=== PATIENT | female | born 1950 | race Caucasian/White ===

== ENCOUNTER → 2023-05-24 09:30 | Outpatient (REF) | payer MEDICARE, SELFPAY ==
[2023-05-24 10:10] LABS: % Basophils 1.2 % (0-2); % Immature Granulocytes 0.3 % (0-0.5); % Lymphocytes 34.4 % (20.5-51.1); % Monocytes 6.9 % (1.7-9.3); % Neutrophils 54.2 % (42.2-75.2); Absolute Basophils 0.1 10^3/uL (0-0.2); Absolute Eosinophils 0.2 10^3/uL (0-0.7); Absolute Lymphocytes 2.1 10^3/uL (1.2-3.4); Absolute Monocytes 0.4 10^3/uL (0.1-0.6); Absolute Neutrophils 3.2 10^3/uL (1.4-6.5); Hematocrit 37.9 % (37.0-47.0); Hemoglobin 12.8 g/dL (12.0-16.0); Mean Corp Hgb Conc. 33.8 g/dL (33.0-37.0); Mean Corpuscular Hgb 30.5 pg (27.0-31.0); Mean Corpuscular Volume 90.2 fL (81.0-99.0); Mean Platelet Volume 9.7 fL (7.4-10.4); Nucleated Red Blood Cells % 0 %; Platelet Count 329 10^3/uL (130-400); Red Cell Dist. Width 13.4 % (11.5-14.5)
[2023-05-24 10:31] LABS: ALT (SGPT) 15 U/L (0-35); AST (SGOT) 19 U/L (14-36); Albumin 3.9 g/dl (3.5-5.0); Alkaline Phosphatase 84 U/L (38-126); Blood Urea Nitrogen 12 mg/dl (7-17); Carbon Dioxide 25 mmol/L (22-30); Chloride 105 mmol/L (98-107); Glucose 86 mg/dl (70-99); HDL Cholesterol 78 mg/dl; LDL Cholesterol, Calculated 72 mg/dl; Potassium 4.5 mmol/L (3.5-5.1); Sodium 139 mmol/L (135-145); Total Bilirubin 0.7 mg/dl (0.2-1.3); Total Cholesterol 178 mg/dl (50-199); Total Protein 6.8 g/dl (6.3-8.2); Triglyceride 144 mg/dl (10-149); Very Low Density Lipoprotein 28 mg/dl (0-30); eGFR > 60.00
[2023-05-24 11:01] LABS: TSH 2.13 uIU/ml (0.47-4.68)
== END ==
LOC: REG 09:30
PROVIDERS: ATTENDING PHYSICIAN Family Medicine
DX: C50.919 Malignant neoplasm of unspecified site of unspecified female breast (principal); C43.9 Malignant melanoma of skin, unspecified; E78.2 Mixed hyperlipidemia
CPT/HCPCS: 36415; 80053; 80061; 84443; 85025

== ENCOUNTER → 2023-06-20 10:15 | Outpatient (REF) | payer MEDICARE, SELFPAY | LOC: DHCBC HW 10:15 | PROVIDERS: ATTENDING PHYSICIAN Internal Medicine Cardiovascular Disease; FAMILY PHYSICIAN Family Medicine | DX: R06.02 Shortness of breath (principal); I44.4 Left anterior fascicular block; E78.00 Pure hypercholesterolemia, unspecified | CPT/HCPCS: 93306 ==

== ENCOUNTER → 2023-06-23 08:59 | Outpatient (REF) | payer MEDICARE, SELFPAY | LOC: RCS 08:59 | PROVIDERS: ATTENDING PHYSICIAN Internal Medicine Cardiovascular Disease; FAMILY PHYSICIAN Family Medicine | DX: R06.02 Shortness of breath (principal); I44.4 Left anterior fascicular block; E78.00 Pure hypercholesterolemia, unspecified | CPT/HCPCS: 93017 ==

== ENCOUNTER → 2023-07-16 11:36 | Outpatient (REF) | payer MEDICARE, SELFPAY | LOC: DHCBC/DCA 11:36 | PROVIDERS: ATTENDING PHYSICIAN Internal Medicine Cardiovascular Disease; FAMILY PHYSICIAN Family Medicine | DX: R94.39 Abnormal result of other cardiovascular function study (principal); E78.00 Pure hypercholesterolemia, unspecified; R06.02 Shortness of breath; I44.4 Left anterior fascicular block | CPT/HCPCS: 78452; 93017; A9500 ==

== ENCOUNTER → 2023-07-25 10:28 | Outpatient (REF) | payer MEDICARE, SELFPAY ==
[2023-07-25 10:59] LABS: Ionized Calcium 1.23 mMOL/L (1.15-1.33)
[2023-07-25 11:38] LABS: Blood Urea Nitrogen 14 mg/dl (7-17); Calcium 10.3 mg/dl (8.4-10.2); Carbon Dioxide 28 mmol/L (22-30); Chloride 106 mmol/L (98-107); Glucose 91 mg/dl (70-99); Potassium 5.1 mmol/L (3.5-5.1); Sodium 140 mmol/L (135-145); eGFR 59.49
[2023-07-25 11:57] LABS: Vitamin D, 25-OH*** 20.3 ng/mL (30-80)
[2023-07-26 11:05] LABS: Intact PTH 45.9 pg/ml (13.6-85.8)
== END ==
LOC: REG 10:28
PROVIDERS: ATTENDING PHYSICIAN Internal Medicine Endocrinology, Diabetes & Metabolism; FAMILY PHYSICIAN Family Medicine
DX: M81.0 Age-related osteoporosis without current pathological fracture (principal); E55.9 Vitamin D deficiency, unspecified
CPT/HCPCS: 36415; 80048; 82306; 82330; 83970

== ENCOUNTER 2023-12-14 19:25 | Emergency (ER) | payer MEDICARE, OTHER, SELFPAY ==
[2023-12-14 19:35] VITALS: BP 172/81
[2023-12-14 19:47] LABS: % Basophils 0.5 % (0-2); % Eosinophils 1.5 % (0-6); % Immature Granulocytes 0.1 % (0-0.5); % Lymphocytes 38.1 % (20.5-51.1); % Monocytes 7.6 % (1.7-9.3); % Neutrophils 52.2 % (42.2-75.2); Absolute Eosinophils 0.1 10^3/uL (0-0.7); Absolute Lymphocytes 2.9 10^3/uL (1.2-3.4); Absolute Monocytes 0.6 10^3/uL (0.1-0.6); Absolute Neutrophils 3.9 10^3/uL (1.4-6.5); Hematocrit 40.4 % (37.0-47.0); Hemoglobin 13.5 g/dL (12.0-16.0); Mean Corp Hgb Conc. 33.4 g/dL (33.0-37.0); Mean Corpuscular Hgb 29.5 pg (27.0-31.0); Mean Corpuscular Volume 88.4 fL (81.0-99.0); Mean Platelet Volume 9.4 fL (7.4-10.4); Nucleated Red Blood Cells % 0 %; Platelet Count 339 10^3/uL (130-400); Red Blood Cell Count 4.57 10^6/uL (4.20-5.40); Red Cell Dist. Width 13.5 % (11.5-14.5); White Blood Cell Count 7.5 10^3/uL (4.8-10.8)
[2023-12-14 19:57] LABS: INR 0.99; PT 12.9 Sec (11.4-14.6)
[2023-12-14 20:08] LABS: ALT (SGPT) 15 U/L (0-35); AST (SGOT) 21 U/L (14-36); Albumin 4.3 g/dl (3.5-5.0); Alkaline Phosphatase 77 U/L (38-126); Blood Urea Nitrogen 18 mg/dl (7-17); Carbon Dioxide 26 mmol/L (22-30); Chloride 102 mmol/L (98-107); Glucose 107 mg/dl (70-99); Potassium 4.3 mmol/L (3.5-5.1); Sodium 140 mmol/L (135-145); Total Bilirubin 0.4 mg/dl (0.2-1.3); Total Protein 7.1 g/dl (6.3-8.2); eGFR 59.49
[2023-12-14 20:10] LABS: Troponin I < 0.012 ng/ml
[2023-12-14 21:37] VITALS: BP 156/74; BMI 25.8
--- NOTE | 2023-12-14 22:56 | ED.GENMED ---
History of Present Illness
General
Chief Complaint: Chest Pain
Time Seen by Provider: 12/14/23 21:54
History of Present Illness
History of Present Illness:
Patient is a 73-year-old woman with history of r hyperlipidemia, eflux, anemia, prior breast cancer presenting to the emergency department with chest pain. Patient states that she been having exertional chest pain for a few months now. For the
past 4 days she has had constant left-sided chest pain. It did go down her arm. She currently states that the pain is resolved. She states that the pain is intermittent and is unclear of the cause of the trigger. She did not take any
medications. Per chart review patient did have an exercise stress test done earlier this year that was positive for ischemia. She states that is being followed by her electric motor fitter Dr. Barriga. She is not on aspirin. She also states that she
did have left-sided arm pain a few months ago that was musculoskeletal. She does note she has been cooking a lot and she is left-handed. Denies any shortness of breath. No leg swelling hemoptysis or long car rides or plane rides. No nausea
vomiting. No diaphoresis. She does have family history of coronary artery disease with her father passing away when he was 60.
Past History
Past History
ED Past Medical History: Cancer (Breast CA), GERD, Hypercholesterolemia, Psychiatric (Anxiety) and Other (Pernicious anemia, )
ED Past Surgical History: Gynecological (Hysterectomy, Bilateral mastectomy)
Social History
Tobacco: Non-smoker
Alcohol: Occasional
Drug: None
Personal:
Living: with family
Employment: Retired
Family History
Family History: Other (Noncontributory)
Phy Exam
Physical Exam
Physical Exam:
GENERAL: in no acute distress
HEENT: normocephalic, extraocular movements intact, moist oral mucosa
NECK: normal inspection
RESPIRATORY: no respiratory distress, clear to auscultation bilaterally
CARDIOVASCULAR: regular rate and rhythm, 2+ radial pulses bilaterally
ABDOMEN/: soft, non-distended, non-tender to palpation, no rebound or guarding
EXTREMITIES: non-tender, no edema/swelling
NEUROLOGIC: awake and alert, moves all extremities
SKIN: warm
Scores
Heart Score for Chest Pain Patients
STEMI patient?: No
History: Slightly or Non-Suspicious
ECG: Nonspecific Repolarization
Age: >/= 65 years
Risk Factors: 1 or 2 Risk Factors
Troponin: </= Normal Limit
Heart Score for Chest Pain Patients: 4
Heart Score Risk: 20.3% MACE over next 6 weeks
Course
Orders/Labs/Results
Orders:
Orders
12/14/23 19:27
EKG [Electrocardiogram (*1)] Urgent
Reason for Study: Chest Pain
EKG- Treatment ONCE
12/14/23 19:41
Complete Blood Count/With Diff Urgent
Comprehensive Metabolic Panel Urgent
Prothrombin Time Urgent
Troponin I Urgent
12/14/23 21:38
Chest [CR Chest - 2 Views ] Urgent
Comment:
Reason For Exam: chest pain
12/14/23 23:44
Troponin I Urgent
Abnormal Lab Results
12/14/23
19:41
BUN 18 H mg/dl
(7-17)
Glucose 107 H mg/dl
(70-99)
12/14/23 19:41
12/14/23 19:41
Vital Signs
Initial and Last Documented VS:
Initial Vital Signs
Temp Pulse Resp BP Pulse Ox
98.1 F 66 18 172/81 100
12/14/23 19:35 12/14/23 19:35 12/14/23 19:35 12/14/23 19:35 12/14/23 19:35
Last Documented Vital Signs
Temp Pulse Resp BP Pulse Ox
98.1 F 58 17 153/79 98
12/14/23 19:35 12/14/23 21:45 12/14/23 21:45 12/14/23 23:05 12/14/23 23:05
MDM/Problems Addressed
Differential Diagnosis Includes:
Patient is a 73-year-old woman with history of hyperlipidemia presenting to the emergency department with chest pain that is currently resolved. She does have a positive stress test. She is currently pain-free. I am concerned about ACS versus
NSTEMI. EKG per my interpretation with slight lateral depression that is similar to prior. Initial troponin negative. Chest x-ray per my interpretation no focal opacity. I will discuss the case with on-call cardiology given that she does have a
high heart score. Given that patient objectively at this point does not have any abnormal findings patient could be discharged home. Dr. Mccracken did look at the stress testing and it was normal which is reassuring. I did go back into discussed
with patient and obtain additional history. Patient continues to state that it is intermittent with unclear triggers. However she notes that she has not been having any chest pain with exertion and it has more so been shortness of breath. She
states that she has never had chest pain with exertion. I did discuss the options of admitting for observation given her high heart score versus obtaining delta troponin given that the pain today was intermittent or discharging with cardiology
follow-up. After shared decision making we will obtain delta troponin given the unclear nature of the exact timing of today's intermittent episode. If normal will discharge home.
*Critical Care Note
Total Time (30-74mins, 75-104mins- exclusive of procedures): Not Applicable
ED Attending Note
-
Portions of this chart may have been created with voice recognition software.� Occasional wrong word or��sound alike� substitutions may have occurred due to the inherent limitations of voice recognition software.
Discharge Plan
Departure
Patient Disposition: Home (Routine Discharge)
Date of Disposition: 12/15/23
Time of Disposition: 00:26
Patient with high blood pressure during this ER visit?: Yes
Discharge Problem:
Chest pain
Instructions: Chest Pain CBC Follow Up
Prescriptions:
No Action
venlafaxine [Effexor] 75 mg Tablet
75 mg PO HS
atorvastatin 10 mg Tablet
10 mg PO DAILY
vitamin [id number] B1 100-1 mg/mL Solution
1 ml IM .BIWEEKLY
esomeprazole magnesium [Nexium] 40 mg Capsule,Delayed Release(Dr/Ec)
40 mg PO DAILY
Prolia 60 mg/mL Syringe
60 mg SC [id number]
Referrals:
Jamaal Iraheta MD [Family Provider] -
Activity Restrictions/Additional Instructions:
You were evaluated in the Emergency Department today for chest pain. Your evaluation has shown no signs of medical conditions requiring emergent intervention at this time, however we recommend that you follow up with your primary care physician or
your electric motor fitter as soon as possible for further testing as an outpatient.
Please schedule an appointment for follow up with your primary care physician as soon as possible.
Return to the Emergency Department if you experience worsening or uncontrolled chest pain, shortness of breath, light headedness, feeling faint, nausea, vomiting, or any other concerning symptoms.
Thank you for choosing us for your care.
Interventions
Interventions:
*Risk Screen - Suicide Last Done: 12/14/23 21:37
*Neglect/Abuse Screening Last Done: 12/14/23 21:37
ED- Fall Risk Assessment Last Done: 12/14/23 21:37
ED- Cardiac Assessment Last Done: 12/14/23 21:37
Discharge Date and Time
Print Language: MALAY
[2023-12-14 23:05] VITALS: BP 153/79
--- NOTE | 2023-12-14 23:38 | EDRN ---
Dr. Mccray in at bedside speaking with patient about plan.
--- NOTE | 2023-12-14 23:57 | EDRN ---
Patient aware we are re-checking the troponin blood level, provided patient and with apple juice, call lynne in reach, no further complaints.
[2023-12-15] VITALS: BP 144/67
[2023-12-15 00:16] LABS: Troponin I < 0.012 ng/ml
== END 2023-12-15 00:53 | disposition home or self-care (01) ==
LOC: EMR 19:25
PROVIDERS: Emergency Medicine; EMERGENCY PHYSICIAN Student in an Organized Health Care Education/Training Program; FAMILY PHYSICIAN Family Medicine
DX: R07.89 Other chest pain (principal); M79.602 Pain in left arm; R06.02 Shortness of breath; R03.0 Elevated blood-pressure reading, without diagnosis of hypertension; E78.00 Pure hypercholesterolemia, unspecified; K21.9 Gastro-esophageal reflux disease without esophagitis; D64.9 Anemia, unspecified; I99.8 Other disorder of circulatory system; Z88.5 Allergy status to narcotic agent
CPT/HCPCS: 99283; 71046; 80053; 84484; 85025; 85610; 93005

== ENCOUNTER 2024-01-02 08:10 | Day surgery (SDC) | payer MEDICARE, OTHER, SELFPAY ==
[2024-01-02] VITALS (12 sets, daily range): BP systolic 105–167; BP diastolic 67–84; BMI 27.1
[2024-01-02] MEDS: LOW STRENGTH ASPIRIN 81 MG PO (08:52)
[2024-01-02] MEDS: NSS 500 ML IV (08:52)
--- NOTE | 2024-01-02 10:40 | ITS.CL.CATH ---
[employer] - Catheterization
Cardiac Catheterization
Procedure Report:
CARDIAC CATHETERIZATION REPORT
Date of Procedure: 01/02/2024
Referring: Hussain Leyva MD
Indication: Abnormal stress test
�
HEMODYNAMIC DATA
AO: 141/73
LV: 141/14
�
LEFT VENTRICULOGRAPHY: Focal inferobasal hypokinesis with EF 58%
�
CORONARY ANGIOGRAPHY
Dominance: Right
Left Main: Normal
LAD: Mild calcification with trivial luminal disease in the LAD proper. The medium sized D2 has 40% ostial stenosis
Circumflex: Trivial luminal irregularities
RCA: Dominant vessel with occlusion in the mid RCA. A large PDA and large posterolateral system fill via well-developed collaterals from the left coronary artery
�
Closure Device: None-the procedure was performed via the right radial artery. The Huseyin's test was normal prior to the procedure.
�
Radiation (mGy): 187
DAP (cm2.Gy): 14.9
Fluoroscopy time: 1.9 minutes
�
CONCLUSIONS
1:�Focal area of inferobasal hypokinesis with EF 58%
2:�Single-vessel CAD with mid RCA chronic total occlusion. The large distal RCA territory is well collateralized
3. Medical therapy as needed for ischemic symptoms and aggressive risk factor modification-we will add aspirin 81 mg daily to her regimen and increase atorvastatin to 40 mg daily with goal LDL less than 70 and ideally less than 55
�
�
Copy to: Hussain Leyva MD, Jamaal Iraheta MD
�
Hussain Leyva MD, [facility], [facility]
== END 2024-01-02 14:20 | disposition home or self-care (01) ==
LOC: CATH 08:10
PROVIDERS: ATTENDING PHYSICIAN Internal Medicine Cardiovascular Disease; FAMILY PHYSICIAN Family Medicine; OTHER PHYSICIAN Internal Medicine Cardiovascular Disease
DX: I25.10 Atherosclerotic heart disease of native coronary artery without angina pectoris (principal); Z79.82 Long term (current) use of aspirin; I25.82 Chronic total occlusion of coronary artery; Z79.899 Other long term (current) drug therapy
CPT/HCPCS: 93458; C1894; Q9967

== ENCOUNTER → 2024-02-02 14:48 | Outpatient (REF) | payer MEDICARE, OTHER, SELFPAY ==
[2024-02-02 16:00] LABS: Ionized Calcium 1.25 mMOL/L (1.15-1.33)
[2024-02-02 16:18] LABS: Blood Urea Nitrogen 15 mg/dl (7-17); Carbon Dioxide 30 mmol/L (22-30); Chloride 102 mmol/L (98-107); Glucose 95 mg/dl (70-99); Potassium 4.5 mmol/L (3.5-5.1); Sodium 142 mmol/L (135-145); eGFR 53.06
[2024-02-02 16:37] LABS: Vitamin D, 25-OH*** 20.9 ng/mL (30-80)
[2024-02-04 11:27] LABS: Intact PTH 34.9 pg/ml (13.6-85.8)
== END ==
LOC: RAD 14:48
PROVIDERS: ATTENDING PHYSICIAN Internal Medicine Endocrinology, Diabetes & Metabolism; FAMILY PHYSICIAN Family Medicine
DX: M81.0 Age-related osteoporosis without current pathological fracture (principal); E55.9 Vitamin D deficiency, unspecified
CPT/HCPCS: 36415; 77080; 80048; 82306; 82330; 83970

== ENCOUNTER 2024-04-05 06:16 | Emergency (ER) | payer MEDICARE, OTHER, SELFPAY ==
[2024-04-05 06:19] VITALS: BP 148/86
[2024-04-05 06:50] LABS: % Basophils 0.5 % (0-2); % Eosinophils 3.1 % (0-6); % Immature Granulocytes 0.2 % (0-0.5); % Monocytes 6.5 % (1.7-9.3); % Neutrophils 61.7 % (42.2-75.2); Absolute Basophils 0.1 10^3/uL (0-0.2); Absolute Eosinophils 0.3 10^3/uL (0-0.7); Absolute Lymphocytes 2.6 10^3/uL (1.2-3.4); Absolute Monocytes 0.6 10^3/uL (0.1-0.6); Absolute Neutrophils 5.6 10^3/uL (1.4-6.5); Hematocrit 43.3 % (37.0-47.0); Hemoglobin 14.2 g/dL (12.0-16.0); Mean Corp Hgb Conc. 32.8 g/dL (33.0-37.0); Mean Corpuscular Hgb 30.5 pg (27.0-31.0); Mean Corpuscular Volume 93.1 fL (81.0-99.0); Mean Platelet Volume 10.2 fL (7.4-10.4); Nucleated Red Blood Cells % 0 %; Platelet Count 321 10^3/uL (130-400); Red Blood Cell Count 4.65 10^6/uL (4.20-5.40); White Blood Cell Count 9.1 10^3/uL (4.8-10.8)
[2024-04-05 07:03] LABS: ALT (SGPT) 21 U/L (0-35); AST (SGOT) 28 U/L (14-36); Albumin 4.4 g/dl (3.5-5.0); Alkaline Phosphatase 102 U/L (38-126); Blood Urea Nitrogen 18 mg/dl (7-17); Calcium 9.3 mg/dl (8.4-10.2); Carbon Dioxide 24 mmol/L (22-30); Chloride 105 mmol/L (98-107); Glucose 110 mg/dl (70-99); Potassium 4.1 mmol/L (3.5-5.1); Sodium 141 mmol/L (135-145); Total Bilirubin 0.7 mg/dl (0.2-1.3); Total Protein 7.3 g/dl (6.3-8.2); eGFR > 60.00
[2024-04-05 07:14] LABS: Troponin I < 0.012 ng/ml
[2024-04-05 08:04] VITALS: BP 145/78; BMI 25.8
--- NOTE | 2024-04-05 08:52 | ED.GENMED ---
History of Present Illness
General
Chief Complaint: Chest Pain
Source: patient
Exam Limitations: none
Time Seen by Provider: 04/05/24 08:14
History of Present Illness
History of Present Illness:
Patient is a 73-year-old female with known CAD, previous stroke 3 weeks ago presents to the ER for evaluation. She admits she is very anxious because she recently had a stroke 3 weeks ago and also was aware that she has known blockages in her heart
from previous cardiac catheterization. She reports over the past week she has had intermittent episodes of pain more in her left breast area/left chest. She is concerned because she is having difficulty telling if this is a breast or chest pain
and because of her known CAD she presented to the ER. She has had no associated shortness of breath with this. She denies any injury. She denies any redness or swelling to the area denies any fever chills or injury to the area she reports the
last episode of chest pain was around 12:30 AM it' came and went'. She is presently asymptomatic.
Her previous cardiac catheterization was January [address] Leyva. With recent stroke 3 weeks ago she was seen at [facility] at that time and Plavix was added to her current aspirin therapy. She is taking both at this time.
She has an appoint with her copy editor, Dr. Barriga's PA tomorrow that was previously scheduled
In addition because she is very anxious over her silicone breast implants she has an appointment with a new plastic surgeon, Dr. Daniel Mark in the next several months. Her surg was 20 yrs ago and she reports she is very anxious over the fact
that her implants are silicone and she wanted to meet with a new surgeon to discuss this.
Past History
Past History
ED Past Medical History: Cancer (Breast CA), GERD, Hypercholesterolemia, Psychiatric (Anxiety) and Other (Pernicious anemia, )
ED Past Surgical History: Gynecological (Hysterectomy, Bilateral mastectomy)
Social History
Tobacco: Non-smoker
Alcohol: Occasional
Drug: None
Personal:
Living: with family
Employment: Retired
Family History
Family History: Other (Noncontributory)
Review of Systems
Review of Systems
Allergies reviewed?: Yes
All Other Systems: ROS reviewed and negative except as documented in HPI and ROS
Constitutional: Reports no symptoms
Respiratory: Reports trouble breathing
Cardiac: Reports chest pain (left sided chest/breast pain); Denies palpitations or syncope
: Reports no symptoms
Musculoskeletal: Reports no symptoms
Neurological: Reports no symptoms
Psychiatric: Reports no symptoms
Phy Exam
General Physical Exam
General Presentation: no apparent distress
General age: appears stated age
General Skin: warm and dry
General Habitus: normal
General Mental: alert
General Hydration: appears well hydrated
Cardiovascular Exam
Cardiovascular Exam: regular rate/rhythm, no murmur and normal peripheral pulses
Pulmonary Exam
Pulmonary Exam: lungs clear, no respiratory distress, chest non tender and other (Left breast with no erythema and nontender)
Neurological Exam
Neurological Exam: alert and oriented x3
Musculoskeletal Exam
Musculoskeletal Exam: full ROM
Skin Exam
Skin Exam: normal color and warm/dry
Psychiatric Exam
Psychiatric Exam: normal mood/affect
Scores
Heart Score for Chest Pain Patients
STEMI patient?: Not applicable
Course
Orders/Labs/Results
Orders:
Orders
04/05/24 06:22
Electrocardiogram (*1) Urgent
Reason for Study: Chest Pain
EKG- Treatment ONCE
04/05/24 06:38
Complete Blood Count/With Diff Urgent
Comprehensive Metabolic Panel Urgent
Troponin I Urgent
04/05/24 09:15
Chest [CR Chest - 2 Views ] Urgent
Comment:
Reason For Exam: cp
Abnormal Lab Results
04/05/24
06:38
MCHC 32.8 L g/dL
(33.0-37.0)
BUN 18 H mg/dl
(7-17)
Glucose 110 H mg/dl
(70-99)
04/05/24 06:38
04/05/24 06:38
Vital Signs
Initial and Last Documented VS:
Initial Vital Signs
Temp Pulse Resp BP Pulse Ox
97.1 F 70 20 148/86 97
04/05/24 06:19 04/05/24 06:19 04/05/24 06:19 04/05/24 06:19 04/05/24 06:19
Last Documented Vital Signs
Temp Pulse Resp BP Pulse Ox
97.1 F 62 12 123/71 95
04/05/24 06:19 04/05/24 09:45 04/05/24 09:45 04/05/24 09:00 04/05/24 09:45
MDM/Problems Addressed
Differential Diagnosis Includes:
not limited to: ACS, breast pain, chest wall pain less likely PE
MDM/Problems Addressed:
As documented patient is a 73-year-old who presented with intermittent left-sided intermittent chest pain which she describes as more in her breast over the past week. She had this episode again last night which concerned her. She does have a
history of cardiovascular disease as well as recent stroke. She is on aspirin and Plavix. She presented asymptomatic. She has been feeling very anxious over her breast implants which are 20 years old and has an appointment with a plastic surgeon
in 2 weeks to discuss this. Because of her history of cardiovascular disease she was anxious about the chest pain. She had no associated shortness of breath at this and is on Plavix and aspirin. Patient presents awake alert she is asymptomatic
heart rate is in the 60s�70s. She is in no acute distress lungs are clear normal regular rate and rhythm. On exam there is no evidence of infection to the left breast, she is nontender on exam there is no redness. Denies any fever chills.
Patient is very anxious and she admits to being anxious over the fact that she recently had a stroke several weeks ago has known cardiac disease and has these implants which has been concerning to her. She is concerned that they are filled with
silicone and is even considering surgery to get the removed. Patient was monitored here and had no symptoms throughout the ER stay and has a normal cardiac troponin no acute findings on x-ray. Her lungs are clear with no complaints of shortness of
breath symptoms are not consistent with PE. She is nontachycardic nonhypoxic.
Patient is stable for discharge home. She has an appointment with copy editor group tomorrow and her plastic surgeon in 2 weeks.
Discussed the importance of keeping these appointments and to return if any worsening of symptoms
*Radiology
Radiology exam reviewed: radiology read reviewed
*Pulse Oximetry
Patient hypoxic: no
*EKG
Interpreted by ED Provider?: Yes
Heart Rate: 68
Rate: normal
Rhythm: sinus
Ischemia: non-specific ST changes
*Critical Care Note
Total Time (30-74mins, 75-104mins- exclusive of procedures): Not Applicable
Data Reviewed
Review of Other/Old Records Reveals: Other (Cardiac catheterization reviewed from 01/24 shows focal inferior basal hypokinesis with a EF 58% single-vessel CAD with mid RCA chronic total distal occlusion medical therapy as needed for ischemic
symptoms recommended)
ED Attending Note
-
Portions of this chart may have been created with voice recognition software.� Occasional wrong word or��sound alike� substitutions may have occurred due to the inherent limitations of voice recognition software.
Discharge Plan
Departure
Patient Disposition: Home (Routine Discharge)
Date of Disposition: 04/05/24
Time of Disposition: 10:56
Patient with high blood pressure during this ER visit?: No
Condition: Fair
Covid-19: Not Applicable
Discharge Problem:
Chest pain
Instructions: Chest pain - Discharge instructions
Prescriptions:
No Action
venlafaxine 75 mg Tablet
75 mg PO HS
esomeprazole magnesium [Nexium] 40 mg Capsule,Delayed Release(Dr/Ec)
40 mg PO HS
Prolia 60 mg/mL Syringe
60 mg SC [id number]
aspirin 81 mg Tablet,Chewable
81 mg PO HS
atorvastatin 40 mg tablet
40 mg PO HS Qty: 90 3RF
nitroglycerin 0.4 mg tablet, sublingual
0.4 mg sublingual [id number] PRN (Reason: chest pain) Qty: 25 2RF
metoprolol succinate 25 mg tablet extended release 24 hr
25 mg PO DAILY Qty: 90 3RF
Referrals:
Jamaal Iraheta MD [Family Provider] -
Adam Barriga MD [Active] -
Activity Restrictions/Additional Instructions:
As discussed please follow with a copy editor group tomorrow as scheduled and your plastic surgeon as scheduled. Continue taking your previously prescribed medications return if any worsening of symptoms
Interventions
Interventions:
*Risk Screen - Suicide Last Done: 04/05/24 06:19
*General Assessment Last Done: 04/05/24 08:04
*Neglect/Abuse Screening Last Done: 04/05/24 06:19
ED- Fall Risk Assessment Last Done: 04/05/24 08:04
*ED COVID-19 Vaccine History Last Done: 04/05/24 08:04
ED- Cardiac Assessment Last Done: 04/05/24 08:04
ED- Neurological Assessment Last Done: 04/05/24 08:04
ED- Pulmonary Assessment Last Done: 04/05/24 08:04
Discharge Date and Time
Print Language: AMHARIC
[2024-04-05 09:00] VITALS: BP 123/71
[2024-04-05 10:00] VITALS: BP 123/61
== END 2024-04-05 11:02 | disposition home or self-care (01) ==
LOC: EMR 06:16
PROVIDERS: EMERGENCY PHYSICIAN Emergency Medicine; FAMILY PHYSICIAN Family Medicine
DX: R07.9 Chest pain, unspecified (principal); I25.10 Atherosclerotic heart disease of native coronary artery without angina pectoris; E78.00 Pure hypercholesterolemia, unspecified; K21.9 Gastro-esophageal reflux disease without esophagitis; Z86.73 Personal history of transient ischemic attack (TIA), and cerebral infarction without residual deficits; Z85.3 Personal history of malignant neoplasm of breast; Z79.02 Long term (current) use of antithrombotics/antiplatelets; Z79.82 Long term (current) use of aspirin; Z90.710 Acquired absence of both cervix and uterus
CPT/HCPCS: 99285; 71046; 80053; 84484; 85025; 93005

== ENCOUNTER → 2024-04-20 12:26 | Outpatient (REF) | payer MEDICARE, OTHER, SELFPAY | LOC: RCS 12:26 | PROVIDERS: ATTENDING PHYSICIAN Nurse Practitioner; FAMILY PHYSICIAN Family Medicine | DX: I63.9 Cerebral infarction, unspecified (principal) | CPT/HCPCS: 93306 ==

== ENCOUNTER 2024-05-27 13:00 | Day surgery (SDC) | payer MEDICARE, OTHER, SELFPAY ==
--- NOTE | 2024-05-27 14:30 | ITS.CL.IMPLP ---
Fuel Pilot Engineer - Implant Loop
Implant Loop
Procedure Report:
Procedure: Insertion of Loop Recorder.�
Date of the procedure: 05/27/2024
Procedure Physician: Preeti Portillo MD [facility]
Indication: Cryptogenic stroke
Description of the procedure:
Patient was brought to the holding area after informed consent was obtained from the patient. The time-out was performed immediately before the procedure.
The left parasternal chest area was prepped and draped in sterile fashion with chlorhexidine prep x 3 times. Lidocaine 1% was injected subcutaneously for local anesthesia. The loop recorder was tunneled and then injected into the subcutaneous
tissue. The tunneling tool was removed leaving the loop recorder in place. The dermis was closed with steristrips and a pressure Tegaderm dressing was placed. There were no immediate complications.
Post procedure, the device was interrogated and showed good detectable P and R waves.
There were no immediate complications.
Device:
LINQII; Model: [id number]; Serial #:[id number]
R wave amplitude: 0.36 mV
Final Programming:
��������������� Tachycardia Detection: >182 bpm for 16 beats
��������������� Bradycardia Detection: 30 bpm for 12 beats, Asystole for 5 seconds.
��������������� Atrial fibrillation detection: On with > 10 min duration
Conclusion:
Successful insertion of loop recorder.
Recommendation:
Routine post-insert loop care.
--- NOTE | 2024-05-27 16:26 | PTCARENOTE ---
Patient called from home that dressing on chest was saturated with blood. CALCULUS TEACHER, Madhuri Sanchez, made aware and instructed patient to come back to cath recovery. Patient arrived to cath recovery and dressing removed. Pressure held to chest site for 10
minutes by CALCULUS TEACHER. Additional steri strips applied and covered with gauze and tegaderm. Patient to be observed until 5:00.
--- NOTE | 2024-05-27 17:04 | W.PN.UPDATE ---
Update Note
Progress Note Update
Pt had Loop recorder placed earlier today, pt called stating her dressing was saturated in blood. She returned to lab and site was saturated, manual pressure held for 10min, 3 more steri strips applied, and site redressed. She was monitored for
30min and ambulated with no further drainage. She will call with any concerns or issues. Stable for d/c home.
--- NOTE | 2024-05-27 17:05 | PTCARENOTE ---
Dressing to left chest wall site, cdi. No drainage noted to site. WOOD GOUGER at bedside assessing site. Patient walked a lap around the unit. Patient to be discharged home.
== END 2024-05-27 14:50 ==
LOC: CATH 13:00
PROVIDERS: ATTENDING PHYSICIAN Internal Medicine Cardiovascular Disease; FAMILY PHYSICIAN Family Medicine; OTHER PHYSICIAN Internal Medicine Cardiovascular Disease
DX: Z09 Encounter for follow-up examination after completed treatment for conditions other than malignant neoplasm (principal); Z86.73 Personal history of transient ischemic attack (TIA), and cerebral infarction without residual deficits; E78.5 Hyperlipidemia, unspecified; I44.4 Left anterior fascicular block; Z79.899 Other long term (current) drug therapy; Z79.02 Long term (current) use of antithrombotics/antiplatelets
CPT/HCPCS: 33285; C1764

== ENCOUNTER → 2024-07-01 10:52 | Outpatient (REF) | payer MEDICARE, OTHER, SELFPAY ==
[2024-07-01 12:58] LABS: ALT (SGPT) 13 U/L (0-35); AST (SGOT) 16 U/L (14-36); Albumin 4.1 g/dl (3.5-5.0); Alkaline Phosphatase 59 U/L (38-126); Blood Urea Nitrogen 14 mg/dl (7-17); Calcium 9.4 mg/dl (8.4-10.2); Carbon Dioxide 27 mmol/L (22-30); Chloride 107 mmol/L (98-107); Glucose 85 mg/dl (70-99); HDL Cholesterol 64 mg/dl; LDL Cholesterol, Calculated 71 mg/dl; Potassium 4.4 mmol/L (3.5-5.1); Sodium 144 mmol/L (135-145); Total Bilirubin 0.5 mg/dl (0.2-1.3); Total Cholesterol 163 mg/dl (50-199); Total Protein 6.8 g/dl (6.3-8.2); Triglyceride 141 mg/dl (10-149); Very Low Density Lipoprotein 28 mg/dl (0-30); eGFR > 60.00
== END ==
LOC: REG 10:52
PROVIDERS: ATTENDING PHYSICIAN Nurse Practitioner Gerontology; FAMILY PHYSICIAN Family Medicine; REFERRING PHYSICIAN Internal Medicine Cardiovascular Disease
DX: I25.10 Atherosclerotic heart disease of native coronary artery without angina pectoris (principal)
CPT/HCPCS: 36415; 80053; 80061

== ENCOUNTER → 2024-07-07 11:05 | Outpatient (REF) | payer MEDICARE, OTHER, SELFPAY ==
[2024-07-07 12:27] LABS: % Basophils 0.7 % (0-2); % Eosinophils 3.3 % (0-6); % Immature Granulocytes 0.2 % (0-0.5); % Lymphocytes 29.6 % (20.5-51.1); % Monocytes 9.2 % (1.7-9.3); Absolute Eosinophils 0.2 10^3/uL (0-0.7); Absolute Lymphocytes 1.7 10^3/uL (1.2-3.4); Absolute Monocytes 0.5 10^3/uL (0.1-0.6); Absolute Neutrophils 3.3 10^3/uL (1.4-6.5); Hematocrit 41.5 % (37.0-47.0); Hemoglobin 13.6 g/dL (12.0-16.0); Mean Corp Hgb Conc. 32.8 g/dL (33.0-37.0); Mean Corpuscular Hgb 30.4 pg (27.0-31.0); Mean Corpuscular Volume 92.8 fL (81.0-99.0); Mean Platelet Volume 10.2 fL (7.4-10.4); Nucleated Red Blood Cells % 0 %; Platelet Count 360 10^3/uL (130-400); Red Blood Cell Count 4.47 10^6/uL (4.20-5.40); Red Cell Dist. Width 12.9 % (11.5-14.5); White Blood Cell Count 5.8 10^3/uL (4.8-10.8)
[2024-07-07 12:49] LABS: ALT (SGPT) 12 U/L (0-35); AST (SGOT) 18 U/L (14-36); Albumin 3.7 g/dl (3.5-5.0); Alkaline Phosphatase 66 U/L (38-126); Blood Urea Nitrogen 14 mg/dl (7-17); Calcium 9.5 mg/dl (8.4-10.2); Carbon Dioxide 31 mmol/L (22-30); Chloride 109 mmol/L (98-107); Glucose 91 mg/dl (70-99); HDL Cholesterol 65 mg/dl; LDL Cholesterol, Calculated 73 mg/dl; Potassium 5.2 mmol/L (3.5-5.1); Sodium 143 mmol/L (135-145); Total Bilirubin 0.7 mg/dl (0.2-1.3); Total Cholesterol 156 mg/dl (50-199); Total Protein 6.6 g/dl (6.3-8.2); Triglyceride 90 mg/dl (10-149); Very Low Density Lipoprotein 18 mg/dl (0-30); eGFR > 60.00
[2024-07-07 13:08] LABS: Glycohemoglobin (HgbA1c) 5.4 % (4.0-5.6)
[2024-07-07 13:20] LABS: TSH Reflex To Free T4 1.64 uIU/ml (0.47-4.68)
== END ==
LOC: REG 11:05
PROVIDERS: ATTENDING PHYSICIAN Family Medicine
DX: R73.9 Hyperglycemia, unspecified (principal); E87.6 Hypokalemia; E78.2 Mixed hyperlipidemia; I10 Essential (primary) hypertension; I25.10 Atherosclerotic heart disease of native coronary artery without angina pectoris
CPT/HCPCS: 36415; 80053; 80061; 83036; 84443; 85025

== ENCOUNTER 2024-11-06 23:12 | Emergency (ER) | payer MEDICARE, OTHER, SELFPAY ==
[2024-11-06 23:19] VITALS: BP 178/94
[2024-11-06 23:40] LABS: Hematocrit 39.6 % (37.0-47.0); Hemoglobin 13.1 g/dL (12.0-16.0); Mean Corp Hgb Conc. 33.1 g/dL (33.0-37.0); Mean Corpuscular Volume 92.7 fL (81.0-99.0); Nucleated Red Blood Cells % 0 %; Platelet Count 338 10^3/uL (130-400); Red Cell Dist. Width 13.4 % (11.5-14.5)
[2024-11-06 23:55] LABS: ALT (SGPT) 13 U/L (0-35); AST (SGOT) 16 U/L (14-36); Albumin 4.3 g/dl (3.5-5.0); Alkaline Phosphatase 59 U/L (38-126); Blood Urea Nitrogen 21 mg/dl (7-17); Calcium 10.1 mg/dl (8.4-10.2); Carbon Dioxide 28 mmol/L (22-30); Chloride 105 mmol/L (98-107); Glucose 107 mg/dl (70-99); Potassium 4.1 mmol/L (3.5-5.1); Sodium 138 mmol/L (135-145); Total Protein 7.1 g/dl (6.3-8.2); eGFR > 60.00
[2024-11-07 00:10] LABS: Troponin I < 0.012 ng/ml
[2024-11-07 02:18] VITALS: BMI 25.1
[2024-11-07 02:22] VITALS: BP 175/84
[2024-11-07 03:00] VITALS: BP 165/73
--- NOTE | 2024-11-07 03:10 | EDRN ---
Pt had cp around 2030 that was 'more than it is now.' Pt took nexium and Tums because she thought it was epigastric pain. Usually, these medications help the sensation dissipate but tonight, the medicine did not work. Pain improved in the past
hour. Pt says her chest is now 'just sore.' No sob, abd pain, n/v, fever/chills, cough, weakness, dizziness. No radiation of chest pain.
--- NOTE | 2024-11-07 03:13 | EDRN ---
Pt adds the pain is in the middle of her chest 'more towards the right' and it now only hurts if she pushes on it.
--- NOTE | 2024-11-07 03:22 | ED.GENMED ---
History of Present Illness
General
Chief Complaint: Chest Pain
Time Seen by Provider: 11/07/24 03:20
History of Present Illness
History of Present Illness:
FOCUSED PAST MEDICAL HISTORY
- Single-vessel CAD on cath
24
REVIEW OF OLD RECORDS
- The patient had a loop recorder placed in May 2024. Cath with Dr. Leyva in January 2024 showed single-vessel CAD and mid RCA chronic total occlusion with large distal RCA territory well collateralization and medical therapy recommended.
Note:
CHIEF COMPLAINT(S)
Chest pain.
HISTORY OF PRESENT ILLNESS
The patient is a 74-year-old male with a history of coronary artery disease involving the right coronary artery (RCA) with chronic occlusion noted on prior catheterization. He was referred to the emergency department due to chest pain located at a
small, specific area on the right side near the breast tissue. The chest pain was reproducible upon palpation and was noted to be present earlier without touch. The patient reported no dyspnea and only experienced a hot flash earlier rather than
significant sweating. The chest pain had been ongoing since approximately 8:00 PM, and the patient arrived at the emergency department around 11:00 PM. Initial cardiac labs were normal, with a plan to repeat them for safety given the timing of
symptom onset. No significant intervention was performed on prior catheterization due to the presence of collateral circulation and a non-significant 40% occlusion in another vessel.
PAST MEDICAL AND SURGICAL HISTORY
- Coronary artery disease with prior cardiac catheterization.
- Chronic occlusion of RCA with collaterals.
EXTERNAL RECORDS REVIEWED
- Previous catheterization by Dr. Mcelroy in January 2024 showing RCA occlusion with adequate collateral circulation.
PHYSICAL EXAM
- General: Well appearing in no distress
- HEENT: Moist oral mucosa
- Cardiovascular: No murmurs, normal heart rate, regular rhythm, moderate chest wall tenderness near the medial aspect of the right breast
- Pulmonary: No respiratory distress, breath sounds are clear and equal
- Abdomen: Soft with no peritoneal signs, no tenderness
- Neurologic: Excellent strength all extremities, no coordination deficits
- Psychiatric: Appropriate mental status, normal insight and judgement
- Extremities: Nontender, no edema, moves all extremities equally
- Skin: No rash, no lesions
PLAN
- Repeat cardiac blood work to rule out myocardial infarction.
- Consider outpatient follow-up with Dr. Barriga at [facility].
DIFFERENTIAL DIAGNOSIS
The Differential Diagnosis includes, in no particular order and is not limited to:
- Costochondritis
- Coronary artery disease
- Angina pectoris
- Musculoskeletal chest pain
- Gastroesophageal reflux disease
- Anxiety-related chest pain
- Myocardial infarction
- Pericarditis
- Pulmonary embolism
- Aortic dissection
SUMMARY OF ENCOUNTER
A 74-year-old male with coronary artery disease and a history of RCA occlusion presented with reproducible chest pain. Initial cardiac blood work was normal. Given the timing of symptom onset, repeat testing is planned to definitively rule out acute
cardiac causes. Based on reproducibility and localized pain, costochondritis is considered likely, but further cardiac evaluation through wet end supervisor follow-up is advised.
DISPOSITION
Pending further cardiac enzyme testing; likely discharge if results remain unchanged.
INDEPENDENT REVIEW OF LABS AND INTERPRETATION OF TESTS
My independent review of cardiac blood work indicates initial negative results, with a pending repeat to confirm no acute myocardial infarction.
FOLLOW-UP INSTRUCTIONS
Recommend follow-up appointment with Dr. Barriga at [facility] for further cardiac evaluation.
MEDICAL DECISION MAKING
- Number and Complexity of Problems Addressed: Chronic conditions affecting care include a history of coronary artery disease with RCA occlusion.
- Data:
Category 1:
- External records reviewed: Prior catheterization records indicating RCA occlusion with collateral circulation.
- Testing planned: Repeat cardiac blood work for confirmatory purposes.
Category 3:
- Plan discussed with the cardiology team for outpatient follow-up.
-Risk: Prescription medication management and potential escalation of care considered, but reassurance sought through repeat testing and outpatient follow-up due to stable condition without acute findings.
DIAGNOSIS
- Costochondritis (M94.0)
- Coronary artery disease (I25.10)
RADIOLOGY
- Loop recorder noted, otherwise chest x-ray unremarkable
EKG
- Sinus 64, left axis deviation, LVH, nonspecific ST abnormality
LABS
- CBC normal chemistries unremarkable, BNP 217, troponin less than 0.012
UPDATE
-SUMMARY OF ENCOUNTER
The patient, a 74-year-old male with a history of coronary artery disease and RCA occlusion, presented to the emergency department with localized chest pain. The pain was reproducible upon palpation on the right side near the breast tissue. Initial
cardiac labs were normal, indicating no acute myocardial infarction. Based on the reproducibility and specificity of the pain, a musculoskeletal origin such as costochondritis was suspected. Anti-inflammatory medication such as ibuprofen was
recommended intermittently for relief. The patient was advised to follow up with their wet end supervisor, Dr. Barriga, for further evaluation to rule out any cardiac etiology due to the existing coronary artery disease.
DISPOSITION
Discharge.
ASSESSMENT
Musculoskeletal chest pain, likely costochondritis.
PLAN
- Recommend the use of ibuprofen intermittently for inflammation and pain relief, unless contraindicated.
- Follow-up with wet end supervisor Dr. Barriga at [facility] for further evaluation.
- Encourage the discontinuation of more strenuous new exercises if they appear to exacerbate symptoms.
INDEPENDENT REVIEW OF LABS AND INTERPRETATION OF TESTS
My independent review of cardiac blood work indicates normal initial results, ruling out acute myocardial infarction.
PATIENT EDUCATION AND COUNSELING
The patient was educated on the likelihood of musculoskeletal chest pain and the use of anti-inflammatory medications for symptom relief. Information was provided about differentiating cardiac-related pain from musculoskeletal pain, and the
importance of follow-up with a wet end supervisor for comprehensive evaluation considering existing coronary artery disease.
FOLLOW-UP INSTRUCTIONS
Please call the office to schedule a follow-up visit with Dr. Barriga at [facility] for further cardiac evaluation.
MEDICATION RECONCILIATION
- Recommended use of ibuprofen (Motrin) intermittently for inflammation and pain relief, if not contraindicated.
MEDICAL DECISION MAKING
- Number and Complexity of Problems Addressed: Chronic conditions affecting care include coronary artery disease with RCA occlusion. Differential diagnosis includes costochondritis, coronary artery disease, angina pectoris, musculoskeletal chest
pain, gastroesophageal reflux disease, anxiety-related chest pain, myocardial infarction, pericarditis, pulmonary embolism, aortic dissection.
- Data:
Category 1:
- External records reviewed: Previous catheterization records indicating RCA occlusion with collateral circulation.
Category 3:
- Plan discussed with the cardiology team for outpatient follow-up with Dr. Barriga.
- Risk:
Prescription medication was recommended and discussed for management of musculoskeletal pain.
DIAGNOSIS
- Costochondritis (M94.0)
- Coronary artery disease (I25.10)
Past History
Past History
ED Past Medical History: Cancer (Breast CA), GERD, Hypercholesterolemia, Psychiatric (Anxiety) and Other (Pernicious anemia, )
ED Past Surgical History: Gynecological (Hysterectomy, Bilateral mastectomy)
Social History
Tobacco: Non-smoker
Alcohol: Occasional
Drug: None
Personal:
Living: with family
Employment: Retired
Family History
Family History: Other (Noncontributory)
Phy Exam
Physical Exam
Physical Exam:
See HPI
Scores
Heart Score for Chest Pain Patients
STEMI patient?: Not applicable
Course
Orders/Labs/Results
Orders:
Orders
11/06/24 23:15
Electrocardiogram (*1) Urgent
Reason for Study: Other
Other Reason for Exam: Respiratory Distress
Cardiac Monitoring- Treatment ONCE
EKG- Treatment ONCE
CR Chest - 2 Views Urgent
Comment:
Reason For Exam: respiratory distress
O2 Therapy [RESP] Urgent
Titrate/Wean O2 to maintain O2 sat greater than (%): 93
Special Instructions: TO MAINTAIN CONTINUOUS O2 SATS >/= 93%
Pulse Ox/cont/shift [RESP] Urgent
Quantity: 1
Special Instructions: continuous pulse ox
11/06/24 23:26
Complete Blood Count/With Diff Urgent
Comprehensive Metabolic Panel Urgent
NT-proBNP Urgent
Troponin I Urgent
11/07/24 03:48
Troponin I Urgent
Abnormal Lab Results
11/06/24
23:26
Absolute Lymphs (auto) 3.8 H 10^3/uL
(1.2-3.4)
Absolute Monos (auto) 0.9 H 10^3/uL
(0.1-0.6)
BUN 21 H mg/dl
(7-17)
Glucose 107 H mg/dl
(70-99)
11/06/24 23:26
11/06/24 23:26
Vital Signs
Initial and Last Documented VS:
Initial Vital Signs
Temp Pulse Resp BP Pulse Ox
36.6 C 60 20 178/94 99
11/06/24 23:19 11/06/24 23:19 11/06/24 23:19 11/06/24 23:19 11/06/24 23:19
Last Documented Vital Signs
Temp Pulse Resp BP Pulse Ox
36.6 C 56 18 172/75 99
11/06/24 23:19 11/07/24 04:00 11/07/24 04:00 11/07/24 04:00 11/07/24 03:25
*Pulse Oximetry
SaO2: 99
Oxygen Mode of Delivery: Room air
Patient hypoxic: no
*Critical Care Note
Total Time (30-74mins, 75-104mins- exclusive of procedures): Not Applicable
ED Attending Note
-
Portions of this chart may have been created with voice recognition software.� Occasional wrong word or��sound alike� substitutions may have occurred due to the inherent limitations of voice recognition software.
Discharge Plan
Departure
Patient Disposition: Home (Routine Discharge)
Date of Disposition: 11/07/24
Time of Disposition: 04:42
Patient with high blood pressure during this ER visit?: Yes
Discharge Problem:
Chest pain
Instructions: Chest Pain CBC Follow Up, BLOOD PRESSURE
Prescriptions:
No Action
venlafaxine 75 mg Tablet
75 mg PO HS
esomeprazole magnesium [Nexium] 40 mg Capsule,Delayed Release(Dr/Ec)
40 mg PO QPM
Prolia 60 mg/mL Syringe
60 mg SC [id number]
nitroglycerin 0.4 mg tablet, sublingual
0.4 mg sublingual [id number] PRN (Reason: chest pain) Qty: 25 2RF
B12 Injection
1 ml SC Q2W
Patient Comments:
pt does not know dosage
clopidogrel [Plavix] 75 mg Tablet
75 mg PO DAILY
rosuvastatin 20 mg Tablet
20 mg PO QPM
metoprolol succinate 25 mg tablet extended release 24 hr
25 mg PO HS
cholecalciferol (vitamin D3) [Vitamin D3] 25 mcg (1,000 unit) Tablet
25 mcg PO DAILY
Referrals:
Jamaal Iraheta MD [Family Provider, Family Practice]
Adam Barriga MD [Active, Cardiology]
Activity Restrictions/Additional Instructions:
2 sets of cardiac blood test both are normal. Follow-up with Dr. Barriga. I see no clear abnormality on the chest x-ray. No evidence of heart failure. Return here if worse or other concerns.
Interventions
Interventions:
*Risk Screen - Suicide Last Done: 11/06/24 23:19
*General Assessment Last Done: 11/06/24 23:19
*Neglect/Abuse Screening Last Done: 11/06/24 23:19
*ED- Fall Risk Assessment Last Done: 11/06/24 23:19
*ED COVID-19 Vaccine History Last Done: 11/06/24 23:19
*Nursing Disposition Last Done: 11/07/24 04:55
ED- Cardiac Assessment Last Done: 11/07/24 03:21
Discharge Date and Time
Discharge Date/Time: 11/07/24 04:55
Print Language: MALDIVIAN
[2024-11-07 04:00] VITALS: BP 172/75
[2024-11-07 04:35] LABS: Troponin I < 0.012 ng/ml
== END 2024-11-07 04:55 | disposition home or self-care (01) ==
LOC: EMR 23:12
PROVIDERS: EMERGENCY PHYSICIAN Emergency Medicine; FAMILY PHYSICIAN Family Medicine
DX: R07.9 Chest pain, unspecified (principal); R03.0 Elevated blood-pressure reading, without diagnosis of hypertension; I25.10 Atherosclerotic heart disease of native coronary artery without angina pectoris; I25.82 Chronic total occlusion of coronary artery; E78.00 Pure hypercholesterolemia, unspecified; D51.0 Vitamin B12 deficiency anemia due to intrinsic factor deficiency; K21.9 Gastro-esophageal reflux disease without esophagitis; F41.9 Anxiety disorder, unspecified; Z85.3 Personal history of malignant neoplasm of breast; Z90.13 Acquired absence of bilateral breasts and nipples
CPT/HCPCS: 99284; 71046; 80053; 83880; 84484; 85025; 93005

== ENCOUNTER 2024-12-15 06:15 | Day surgery (SDC) | payer MEDICARE, OTHER, SELFPAY | END 2024-12-15 09:45 | disposition home or self-care (01) | LOC: GI 06:15 | PROVIDERS: ATTENDING PHYSICIAN Surgery | DX: Z12.11 Encounter for screening for malignant neoplasm of colon (principal); R19.4 Change in bowel habit; K57.30 Diverticulosis of large intestine without perforation or abscess without bleeding; K64.9 Unspecified hemorrhoids; D12.3 Benign neoplasm of transverse colon; Z86.0100 Personal history of colon polyps, unspecified | CPT/HCPCS: 45380; 88305 ==

== ENCOUNTER → 2025-01-28 16:37 | Outpatient (REF) | payer MEDICARE, OTHER, SELFPAY | LOC: PAVMRI 16:37 | PROVIDERS: ATTENDING PHYSICIAN Specialist; FAMILY PHYSICIAN Family Medicine | DX: M25.511 Pain in right shoulder (principal); M75.41 Impingement syndrome of right shoulder | CPT/HCPCS: 73221 ==